=== PATIENT | male | born 1980 | race African-American/Black ===

== ENCOUNTER 2024-02-01 10:28 | Inpatient (IN) | payer OTHER ==
[2024-02-01 11:09] VITALS: BMI 23.6
[2024-02-01] MEDS ORDERED: NALOXONE (NARCAN) HCL 4 MG/0.1 ML SPRAY NS PRN (12:06)
[2024-02-01] MEDS ORDERED: METHOCARBAMOL 500 MG TABLET PO PRN (12:06)
[2024-02-01] MEDS ORDERED: LOPERAMIDE HCL 2 MG CAPSULE PO PRN (12:06)
[2024-02-01] MEDS ORDERED: ACETAMINOPHEN 325 MG TABLET (FP) PO PRN (12:06)
[2024-02-01] MEDS ORDERED: IBUPROFEN 400 MG TABLET (FP) PO PRN (12:06)
[2024-02-01] MEDS ORDERED: IBUPROFEN 600 MG TABLET (FP) PO PRN (12:06)
[2024-02-01] MEDS ORDERED: BENZOCAINE/MENTHOL (CHLORASEPTIC ) LOZENGE MM PRN (12:06)
[2024-02-01] MEDS ORDERED: POLYETHYLENE GLYCOL (HEALTHYLAX) 3350 17 GM PACKET PO PRN (12:06)
[2024-02-01] MEDS ORDERED: guaiFENesin 600 MG TABLET.ER (FP) PO PRN (12:06)
[2024-02-01] MEDS ORDERED: hydrOXYzine PAMOATE 25 MG CAPSULE (FP) PO PRN (12:06)
[2024-02-01] MEDS ORDERED: MAG HYDROX/AL HYDROX/SIMETH 30 ML UNIT-DOSE CUP PO PRN (12:06)
[2024-02-01] MEDS ORDERED: BISMUTH SUBSALICYLATE 524 MG/30 ML PO PRN (12:06)
[2024-02-01] MEDS ORDERED: BENZONATATE 200 MG CAPSULE PO PRN (12:06)
[2024-02-01] MEDS ORDERED: MAGNESIUM HYDROX 2400MG/30ML ORAL SUSPENSION 30 ML CUP PO PRN (12:06)
[2024-02-01] MEDS ORDERED: ONDANSETRON *ODT* 4 MG TABLET SL PRN (12:06)
[2024-02-01] MEDS ORDERED: DICYCLOMINE HCL 10 MG CAPSULE PO PRN (12:06)
[2024-02-01] MEDS ORDERED: ALBUTEROL SO4 HFA INHALER IH PRN (12:23)
[2024-02-01] MEDS: SULFAMETHOXAZOLE/TRIMETHOPRIM 800MG/160MG D.S. TABLET PO SCH (14:08)
[2024-02-01] MEDS: BICTEGRAV/EMTRICIT/TENOFOV (BIKTARVY) 50-200-25 MG TABLET PO SCH (14:09)
[2024-02-01] MEDS: chlordiazePOXIDE HCL 25 MG CAPSULE PO PRN (14:11)
[2024-02-01] MEDS: chlordiazePOXIDE HCL 25 MG CAPSULE PO SCH (17:38)
[2024-02-01] MEDS: THIAMINE 100 MG TABLET PO SCH (22:38)
[2024-02-01] MEDS: MELATONIN 5 MG TABLETS PO SCH (22:38)
[2024-02-02] MEDS: chlordiazePOXIDE HCL 25 MG CAPSULE PO SCH (05:30)
[2024-02-02] MEDS ORDERED: BICTEGRAV/EMTRICIT/TENOFOV (BIKTARVY) 50-200-25 MG TABLET PO SCH (08:00)
[2024-02-02] MEDS: PRENATAL VITAMINS W/ FOLIC ACID TABLET (FP) PO SCH (10:33)
[2024-02-02 11:56] LABS: POTASSIUM 4.4 mmol/L (3.5-5.1)
[2024-02-02 11:59] LABS: HEMATOCRIT 44.4 % (35.4-49); HEMOGLOBIN 15.4 GM/dL (11.7-16.9); MCH 33.8 pg (25.7-33.7); MCHC 34.6 g/dl (32.0-35.9); MEAN CELL VOLUME 97.8 fl (80-96); MEAN PLT VOLUME 10.4 fl (7.5-11.1); PLATELET COUNT 230 10^3/uL (134-434); RBC 4.54 M/mm3 (4.00-5.60); RDW 13.1 % (11.9-15.9); WHITE BLOOD COUNT 4.3 K/mm3 (4.0-10.0)
[2024-02-02 12:07] LABS: CALCIUM 9.6 mg/dL (8.5-10.1)
[2024-02-02 12:08] LABS: BLOOD UREA NITROGEN 12.6 mg/dL (7-18)
[2024-02-02 12:11] LABS: CREATININE 1.2 mg/dL (0.55-1.3)
[2024-02-02 12:12] LABS: BILIRUBIN,TOTAL 1.1 mg/dL (0.2-1); TOT PROT 8.1 g/dl (6.4-8.2)
[2024-02-02] MEDS: DOCUSATE SODIUM 100 MG CAPSULE (FP) PO ONE ×2 (17:29→18:00)
[2024-02-03] MEDS ORDERED: chlordiazePOXIDE HCL 10 MG CAPSULE PO PRN
[2024-02-03] MEDS: chlordiazePOXIDE HCL 10 MG CAPSULE PO SCH (06:00)
[2024-02-03] MEDS: NALTREXONE HCL 50 MG TABLET PO SCH (10:22)
[2024-02-03] MEDS: DOCUSATE SODIUM 100 MG CAPSULE (FP) PO SCH (21:57)
[2024-02-04] MEDS: chlordiazePOXIDE HCL 10 MG CAPSULE PO SCH (05:22)
[2024-02-05] MEDS: chlordiazePOXIDE HCL 10 MG CAPSULE PO ONE (05:38)
[2024-02-05 08:42] VITALS: RESP 18
[2024-02-05] MEDS: NALOXONE (NYS OPIOID OVERDOSE PROGRAM) 4 MG/0.1 ML SPRAY NS PRN (09:02)
[2024-02-05 12:55] VITALS: BP 120/67; PULSE 66; TEMP 98
== END 2024-02-05 09:08 | disposition home or self-care (01) | DRG 774 ==
LOC: YASAS 10:28 → Y3N 12:06 → Y6N 12:14
PROVIDERS: ADMIT Allergy & Immunology; ATTEND Surgery
PROC: HZ2ZZZZ Detoxification Services for Substance Abuse Treatment (ICD-10-PCS; principal; 2024-02-01)
DX: F10.230 Alcohol dependence with withdrawal, uncomplicated (principal); F14.20 Cocaine dependence, uncomplicated; F12.20 Cannabis dependence, uncomplicated; F17.210 Nicotine dependence, cigarettes, uncomplicated; F19.282 Other psychoactive substance dependence with psychoactive substance-induced sleep disorder; Z21 Asymptomatic human immunodeficiency virus [HIV] infection status; J45.909 Unspecified asthma, uncomplicated; Z62.810 Personal history of physical and sexual abuse in childhood; Z79.899 Other long term (current) drug therapy
CPT/HCPCS: 36415; 80053; 80305; 80307; 85027; 86780; 93005; 93010

== ENCOUNTER 2024-12-28 12:30 | Inpatient (IN) | payer OTHER ==
[2024-12-28] MEDS ORDERED: MAGNESIUM HYDROX 2400MG/30ML ORAL SUSPENSION 30 ML CUP PO PRN (13:01)
[2024-12-28] MEDS ORDERED: IBUPROFEN 400 MG TABLET (FP) PO PRN (13:01)
[2024-12-28] MEDS ORDERED: NALOXONE HCL 0.4 MG/ML VIAL IVPUSH PRN (13:01)
[2024-12-28] MEDS ORDERED: MAG HYDROX/AL HYDROX/SIMETH 30 ML UNIT-DOSE CUP PO PRN (13:01)
[2024-12-28] MEDS ORDERED: NICOTINE POLACRILEX 2 MG GUM BUC PRN (13:01)
[2024-12-28] MEDS ORDERED: NICOTINE POLACRILEX 2 MG LOZENGE BC PRN (13:01)
[2024-12-28] MEDS ORDERED: hydrOXYzine PAMOATE 25 MG CAPSULE (FP) PO PRN (13:01)
[2024-12-28] MEDS ORDERED: BENZOCAINE/MENTHOL (CHLORASEPTIC ) LOZENGE MM PRN (13:01)
[2024-12-28] MEDS ORDERED: ACETAMINOPHEN 325 MG TABLET (FP) PO PRN (13:01)
[2024-12-28] MEDS ORDERED: IBUPROFEN 600 MG TABLET (FP) PO PRN (13:01)
[2024-12-28] MEDS ORDERED: METHOCARBAMOL 500 MG TABLET PO PRN (13:01)
[2024-12-28] MEDS ORDERED: NALOXONE (NARCAN) HCL 4 MG/0.1 ML SPRAY NS PRN (13:01)
[2024-12-28] MEDS ORDERED: POLYETHYLENE GLYCOL (HEALTHYLAX) 3350 17 GM PACKET PO PRN (13:01)
[2024-12-28] MEDS ORDERED: BENZONATATE 200 MG CAPSULE PO PRN (13:01)
[2024-12-28] MEDS ORDERED: LOPERAMIDE HCL 2 MG CAPSULE PO PRN (13:01)
[2024-12-28] MEDS ORDERED: ALBUTEROL SO4 HFA INHALER IH PRN (13:02)
[2024-12-28] MEDS: MELATONIN 5 MG TABLETS PO SCH (21:45)
[2024-12-28] MEDS: THIAMINE 100 MG TABLET PO SCH (21:45)
[2024-12-29] MEDS: PRENATAL VITAMINS W/ FOLIC ACID TABLET (FP) PO SCH (11:32)
[2024-12-29] MEDS: BICTEGRAV/EMTRICIT/TENOFOV (BIKTARVY) 50-200-25 MG TABLET PO SCH (11:32)
[2024-12-29] MEDS: SULFAMETHOXAZOLE/TRIMETHOPRIM 800MG/160MG D.S. TABLET PO SCH (11:32)
[2024-12-30] MEDS: guaiFENesin 600 MG TABLET.ER (FP) PO PRN (08:47)
[2024-12-31 05:25] VITALS: RESP 16
[2025-01-01 05:27] VITALS: PULSE 60
[2025-01-02 05:37] VITALS: BP 125/78; TEMP 97.1
== END 2025-01-02 09:14 | disposition left against medical advice (07) | DRG 772 ==
LOC: YASAS 12:30 → Y3NR 12:31 → Y3W 12-29 18:56
PROVIDERS: ADMIT Psychiatry & Neurology Pain Medicine; ATTEND Psychiatry & Neurology Pain Medicine
PROC: HZ42ZZZ Group Counseling for Substance Abuse Treatment, Cognitive-Behavioral (ICD-10-PCS; principal; 2024-12-28)
DX: F14.20 Cocaine dependence, uncomplicated (principal); F10.20 Alcohol dependence, uncomplicated; F12.20 Cannabis dependence, uncomplicated; F32.A Depression, unspecified; J45.909 Unspecified asthma, uncomplicated; Z21 Asymptomatic human immunodeficiency virus [HIV] infection status